=== PATIENT | female | born 1940 | race Caucasian/White ===

== ENCOUNTER 2017-01-26 18:40 | Emergency (ER) | payer MEDICARE, BC ==
[2017-01-26 19:05] VITALS: BMI 21.9
[2017-01-26 19:10] VITALS: TEMP 97.9
--- NOTE | 2017-01-26 19:42 | ED PDOC ---
Arrival/HPI <JamesMichaeltyler - Last Filed: 01/26/17 20:37> - History of Present Illness Time/Duration: Prior to Arrival Symptom Onset: Sudden Severity Level: Mild Activities at Onset: Significant <Jimbo Dunbar - Last Filed: 01/26/17 21:53> - General Chief Complaint: Trauma Time Seen by Provider: 01/26/17 19:13 - History of Present Illness Narrative History of Present Illness (Text): 01/26/17 19:38 76 very pleasant F with pertinent hx of Meniere's disease presents s/p strictly mechanical fall. Patient denies any dizziness, blurry vision, presyncopal symptoms, headache, or aura before the fall. Presently, patient complains of pain in her left frontal lobe as well as bilaterally on the lateral edges of her nasal bone. Patient further complains of a mild abrasion on her LLE near her knee. Patient also states that she has blurry vision in her left eye, but this started after the fall. Patient denies any dizziness, any loss of vision, any loss of sensation, any loss of motor function, and any change in mentation. Patient further denies any f/ch/cp/sob/n/v/d. Patient has no further complaints. (Michael Ramirez) Past Medical History - Provider Review Nursing Documentation Reviewed: Yes - Infectious Disease Hx of Infectious Diseases: None - Tetanus Immunization Tetanus Immunization: Unknown - Cardiac Hx Hypotension: Yes - Pulmonary Hx Respiratory Disorders: No - Neurological Hx Neurological Disorder: Yes (MENIERE'S DSE) Hx Dizziness: Yes - HEENT Hx HEENT Disorder: Yes (WEARS RX GLASSES) - Renal Hx Renal Disorder: No - Endocrine/Metabolic Hx Hypothyroidism: Yes - Hematological/Oncological Hx Blood Disorders: No - Integumentary Hx Dermatological Disorder: No - Musculoskeletal/Rheumatological Hx Musculoskeletal Disorders: Yes (BUNIONECTOMY X 2) Hx Arthritis: Yes Hx Falls: Yes Hx Herniated Disk: Yes Hx Osteoporosis: Yes - Gastrointestinal Hx Gastrointestinal Disorders: Yes (DIVERTICULOSIS) - Genitourinary/Gynecological Hx Genitourinary Disorders: Yes (CEASEREAN SECTION X 3) - Psychiatric Hx Depression: No Hx Emotional Abuse: No Hx Physical Abuse: No Hx Substance Use: No - Surgical History Other/Comment: total thyroidectomy 1984, 3 c-sections - Anesthesia Hx Anesthesia: Yes Hx Anesthesia Reactions: No Hx Malignant Hyperthermia: No - Suicidal Assessment Feels Threatened In Home Enviroment: No <Michael Ramirez - Last Filed: 01/26/17 20:37> Family/Social History - Physician Review Nursing Documentation Reviewed: Yes Family/Social History: Unknown Family HX Smoking Status: Never Smoked Hx Alcohol Use: No Hx Substance Use: No Hx Substance Use Treatment: No <Michael Ramirez - Last Filed: 01/26/17 20:37> Allergies/Home Meds <Michael Ramirez - Last Filed: 01/26/17 20:37> <Jimbo Dunbar - Last Filed: 01/26/17 21:53> Allergies/Adverse Reactions: Allergies latex Allergy (Verified 01/26/17 19:04) SWELLING Home Medications: Home Meds Medication Instructions Recorded Confirmed Levothyroxine [Levothyroxine] 75 mcg PO DAILY 04/07/13 01/26/17 Atorvastatin [Lipitor] 1 tab PO DAILY 01/26/17 01/26/17 Review of Systems - Physician Review All systems were reviewed & negative as marked: Yes - Review of Systems Constitutional: Normal. absent: Fatigue, Weight Change, Fevers Eyes: Vision Changes (left sided visual blurriness after the fall). absent: Photophobia, Eye Pain ENT: Normal. absent: Hearing Changes, Tinnitus, Rhinorrhea, Epistaxis Respiratory: Normal. absent: SOB, Cough, Sputum Cardiovascular: Normal. absent: Chest Pain, Palpitations, Edema, Calf Pain Gastrointestinal: Normal. absent: Constipation, Diarrhea, Nausea, Vomiting Genitourinary Female: Normal. absent: Dysuria, Frequency, Hematuria Musculoskeletal: Normal. absent: Arthralgias, Back Pain, Neck Pain Skin: Normal. absent: Rash, Pruritis, Skin Lesions Neurological: Headache (at site of injury from fall, started only after the fall ). absent: Dizziness, Focal Weakness, Gait Changes, Speech Changes, Facial Droop, Disequilibrium, Seizure Endocrine: Normal. absent: Diaphoresis, Polyuria, Polydipsia Hemo/Lymphatic: Normal, Easy Bruising. absent: Adenopathy, Easy Bleeding Psychiatric: Normal. absent: Anxiety, Depression, Suicidal Ideation <Michael Ramirez - Last Filed: 01/26/17 20:37> Physical Exam Vital Signs Reviewed: Yes Temperature: Afebrile Blood Pressure: Hypertensive (very mildly elevated SBP) Pulse: Regular Respiratory Rate: Normal Appearance: Positive for: Well-Appearing, Non-Toxic, Comfortable Pain Distress: None Mental Status: Positive for: Alert and Oriented X 3. No: Confused, Agitated, Lethargic, Comatose - Systems Exam Head: Present: Normocephalic, Tenderness, Contusion (Left frontal lobe has a mild contusion, patient states that is where she fell and hit her head), Swelling, Abrasion (Patient has an abrasion on bilateral nasal bones on lateral edges). No: Atraumatic, Ecchymosis, Laceration Pupils: Present: PERRL. No: Sluggish, Non-Reactive, Pinpoint Extroacular Muscles: Present: EOMI. No: Gaze Palsy, Entrapment Conjunctiva: Present: Normal. No: Injected, Icteric Ears: Present: Normal, NORMAL TM, Erythema, Normal Canal. No: TM Bulging Mouth: Present: Moist Mucous Membranes. No: Dry, Drooling Pharnyx: Present: Normal. No: ERYTHEMA, EXUDATE, TONSILS ENLARGED Nose (External): Present: Abrasion. No: Atraumatic, Contusion, Laceration Nose (Internal): Present: Normal Inspection, No Active Bleeding. No: Moist, Engorged, Edematous, Boggy Neck: Present: Normal Range of Motion. No: Meningeal Signs, MIDLINE TENDERNESS , Paraspinal Tenderness Respiratory/Chest: Present: Clear to Auscultation, Good Air Exchange. No: Respiratory Distress, Accessory Muscle Use, Wheezes, Rales, Rhonchi Cardiovascular: Present: Regular Rate and Rhythm, Normal S1, S2. No: Murmurs, Irregular Rhythm Abdomen: Present: Normal Bowel Sounds. No: Distention, Peritoneal Signs, Rebound, Guarding Upper Extremity: Present: Normal Inspection, Normal ROM, NORMAL PULSES, Neurovascularly Intact, Capillary Refill < 2s. No: Cyanosis, Edema, Tenderness , Swelling, Erythema, Temperature Abnormalties, Deformity Lower Extremity: Present: NORMAL PULSES, Normal ROM, Tenderness (Pt has a mild abrasion on her LLE near the patella. Full ROM, no deficits in sensation or function), Neurovascularly Intact, Capillary Refill < 2 s. No: Edema, CALF TENDERNESS, Cyanosis, Kenya's Sign, Swelling, Erythema, Deformity, Temperature Abnormalties Neurological: Present: GCS=15, CN II-XII Intact, Speech Normal, Motor Func Grossly Intact, Normal Sensory Function, Normal Cerebellar Funct, Gait Normal, Memory Normal Skin: Present: Warm, Normal Color. No: Dry, Rashes Psychiatric: Present: Alert, Oriented x 3, Normal Insight, Normal Concentration , Normal Affect, Normal Mood. No: Anxious, Agitated, Depressed Mood, Suicidal Ideation, Homicidal Ideation <Michael Ramirez - Last Filed: 01/26/17 20:37> Medical Decision Making <Michael Ramirez - Last Filed: 01/26/17 20:37> - Lab Interpretations I have reviewed the lab results: Yes - RAD Interpretation [employer] Accessory Installer: Radiologist <Jimbo Dunbar - Last Filed: 01/26/17 21:53> ED Course and Treatment: Assessed: 01/26/17 19:40 Impression: 76 F w/ PMHx pertinent for Meniere's presents s/p strictly mechanical fall Plan: - CT Head w/o contrast - CT Maxillofacial w/o contrast - Pt does not need anything for pain at this time - Reassess Reassessed 01/26/17 20:37 - Pt asked for something for pain, given motrin 400 Reassessed 01/26/17 21:33 - Pt pain has improved - CT Head and CT Maxillofacial are negative for acute bleed and fracture, respectively - Pt stable for discharge, given ibuprofen 400 Rx (James,Michael Vásquez) 01/26/17 20:09 Pt. seen and evaluated with the medical center representative.Agree with HPI,clinical exam , assessment and treatment plan. Patient presents to the emergency department with trauma to head s/p mechanical fall. CT Head and CT Maxillofacial negative for any acute fracture or bleeding. Patient is stable for discharge. (Jimbo Dunbar) - RAD Interpretation Narrative RAD Interpretations (Text): CT Head Without Intravenous Contrast Dictated and Authenticated by: Alexis Briceno MD FINDINGS: Brain: Mild atrophy. No intracranial hemorrhage. No mass. Few scattered foci of decreased attenuation within periventricular/subcortical white matter. No edema. Ventricles: No hydrocephalus. Bones/joints: No calvarial fracture. Soft tissues: LEFT frontal soft tissue swelling. Mastoid air cells: No mastoid effusion. IMPRESSION: 1. No intracranial hemorrhage. 2. Nonspecific white matter changes. 3. See facial bone CT report for additional details. EXAM: CT Maxillofacial Without Intravenous Contrast Dictated and Authenticated by: Alexis Briceno MD FINDINGS: Bones/joints: Degenerative changes of cervical spine. No acute fracture. Soft tissues: LEFT frontal/periorbital soft tissue swelling. Orbits: Unremarkable as visualized. Sinuses: Unremarkable. No air-fluid levels. IMPRESSION: 1. No fracture. (Jimbo Dunbar) Radiology Orders: 01/26/17 19:31 HEAD W/O CONTRAST [CT] Stat MAXILLOFACIAL W/O CONTRAST [CT] Stat - Medication Orders Current Medication Orders: Discontinued Medications Ibuprofen (Motrin Tab) 400 mg PO STAT STA Stop: 01/26/17 20:21 Last Admin: 01/26/17 20:35 Dose: 400 mg - PA / CASEWORK SPECIALIST / Resident Statement / has reviewed & agrees with the documentation as recorded. ZAK has examined the patient and agrees with the treatment plan. <Jimbo Dunbar - Last Filed: 01/26/17 21:53> Disposition/Present on Arrival - Present on Arrival Any Indicators Present on Arrival: No History of DVT/PE: No History of Uncontrolled Diabetes: No Urinary Catheter: No History of Decub. Ulcer: No History Surgical Site Infection Following: None - Disposition Have Diagnosis and Disposition been Completed?: Yes Disposition Time: 21:25 Patient Plan: Discharge <Michael Ramirez - Last Filed: 01/26/17 20:37> <Jimbo Dunbar - Last Filed: 01/26/17 21:53> - Disposition Diagnosis: Closed head injury Disposition: HOME/ ROUTINE Patient Problems: Current Active Problems Problem Status Onset Closed head injury Acute Condition: GOOD Discharge Instructions (ExitCare): Head Injury (ED) Additional Instructions: Ms. Ladd, thank you for letting us take care of you today. Your providers were Dr. Dunbar and Dr. Ramirez. You were treated for a closed head injury. The emergency medical care you received today was directed at your acute symptoms. If you were prescribed any medication, please fill it and take as directed. It may take several days for your symptoms to resolve. Return to the Emergency Department if your symptoms worsen, do not improve, or if you have any other problems. Please contact your doctor or call one of the physicians/clinics you have been referred to that are listed on the Patient Visit Information form that is included in your discharge packet. Bring any paperwork you were given at discharge with you along with any medications you are taking to your follow up visit. Our treatment cannot replace ongoing medical care by a primary care provider (PCP) outside of the emergency department. Thank you for allowing the [facility] team to be part of your care today. Your CT Maxillofacial (facial bones) was negative for fracture Your CT Head was negative for any bleeding Prescriptions: Ibuprofen [Motrin] 400 mg PO BID #8 tab Referrals: Rkaesh Kinney MD [Primary Care Provider] - Follow up with primary Forms: [employer] ([place] Citizen)
--- NOTE | 2017-01-26 21:20 | CT ---
EXAM: CT Head Without Intravenous Contrast CLINICAL HISTORY: 76 years old, female; Injury or trauma; Fall; Initial encounter; Abrasion; Forehead; Additional info: S/P fall TECHNIQUE: Axial computed tomography images of the head/brain without intravenous contrast. All CT scans at this facility use one or more dose reduction techniques, viz.: automated exposure control; ma/kV adjustment per patient size (including targeted exams where dose is matched to indication; i.e. head); or iterative reconstruction technique. COMPARISON: No relevant prior studies available. FINDINGS: Brain: Mild atrophy. No intracranial hemorrhage. No mass. Few scattered foci of decreased attenuation within periventricular/subcortical white matter. No edema. Ventricles: No hydrocephalus. Bones/joints: No calvarial fracture. Soft tissues: LEFT frontal soft tissue swelling. Mastoid air cells: No mastoid effusion. IMPRESSION: 1. No intracranial hemorrhage. 2. Nonspecific white matter changes. 3. See facial bone CT report for additional details.
--- NOTE | 2017-01-26 21:22 | CT ---
EXAM: CT Maxillofacial Without Intravenous Contrast CLINICAL HISTORY: 76 years old, female; Injury or trauma; Fall; Initial encounter; Abrasion; Forehead; Additional info: S/P fall TECHNIQUE: Axial computed tomography images of the face without intravenous contrast. All CT scans at this facility use one or more dose reduction techniques, viz.: automated exposure control; ma/kV adjustment per patient size (including targeted exams where dose is matched to indication; i.e. head); or iterative reconstruction technique. Coronal and sagittal reformatted images were created and reviewed. COMPARISON: No relevant prior studies available. FINDINGS: Bones/joints: Degenerative changes of cervical spine. No acute fracture. Soft tissues: LEFT frontal/periorbital soft tissue swelling. Orbits: Unremarkable as visualized. Sinuses: Unremarkable. No air-fluid levels. IMPRESSION: 1. No fracture.
[2017-01-26 21:53] VITALS: BP 128/70; PULSE 70; RESP 17; O2SAT 100
== END 2017-01-26 21:52 | disposition home or self-care (01) ==
LOC: ED 18:40
DX: S09.90XA Unspecified injury of head, initial encounter (principal); W01.0XXA Fall on same level from slipping, tripping and stumbling without subsequent striking against object, initial encounter; Y93.K1 Activity, walking an animal; Y92.830 Public park as the place of occurrence of the external cause

== ENCOUNTER 2017-05-26 06:04 | Day surgery (SDC) | payer MEDICARE, BC ==
[2017-05-14 14:32] VITALS: BMI 22.2
[2017-05-26] MEDS ORDERED: Propofol 10 mg/ml Inj (20 ML) ONE (08:06)
[2017-05-26] MEDS ORDERED: ePHEDrine 50 mg/ml Inj ONE (08:24)
[2017-05-26] MEDS ORDERED: Lactated Ringer's 1,000 ML IV SCH (08:45)
[2017-05-26 09:21] VITALS: O2SAT 97
[2017-05-26 09:34] VITALS: RESP 15
[2017-05-26 10:06] VITALS: BP 108/71; PULSE 14; TEMP 97
== END 2017-05-26 11:22 | disposition home or self-care (01) ==
LOC: ENDO 06:04
PROVIDERS: ATTEND Internal Medicine
DX: D12.0 Benign neoplasm of cecum (principal); D12.3 Benign neoplasm of transverse colon; K59.00 Constipation, unspecified; K57.30 Diverticulosis of large intestine without perforation or abscess without bleeding; K64.8 Other hemorrhoids; K31.7 Polyp of stomach and duodenum; K20.9 Esophagitis, unspecified; K29.70 Gastritis, unspecified, without bleeding; K29.80 Duodenitis without bleeding
CPT/HCPCS: 43239; 45380; 88305; 88342; J2001; J2704; J3010; J7040; J7120

== ENCOUNTER 2017-06-15 10:14 | Day surgery (SDC) | payer MEDICARE, BC ==
[2017-05-14 14:32] VITALS: BMI 22.2
[2017-06-15 11:22] LABS: INR 1.01 (0.93-1.08); PARTIAL THROMBOPLASTIN TIME 34.6 Seconds (25.1-36.5); PROTHROMBIN TIME 11.6 SECONDS (9.4-12.5)
[2017-06-15] MEDS ORDERED: Midazolam 2 MG/2 ML VIAL ONE (11:59)
[2017-06-15] MEDS ORDERED: Oxycodone/Acetaminophen 5/325 mg Tab PO PRN (12:37)
[2017-06-15] MEDS ORDERED: Sodium Chloride 0.45% 1,000 ML IV SCH (12:45)
[2017-06-15 14:54] VITALS: TEMP 98.3; O2SAT 97
--- NOTE | 2017-06-15 15:49 | RAD ---
HISTORY: lt lung bx COMPARISON: CT biopsy same day FINDINGS: LUNGS: Bilateral lung masses. No pneumothorax PLEURA: No significant pleural effusion identified, no pneumothorax apparent. CARDIOVASCULAR: Normal. OSSEOUS STRUCTURES: No significant abnormalities. VISUALIZED UPPER ABDOMEN: Normal. OTHER FINDINGS: None. IMPRESSION: No evidence of post biopsy pneumothorax
[2017-06-15 16:15] VITALS: BP 110/66; PULSE 67; RESP 20
--- NOTE | 2017-06-15 19:33 | CT ---
PROCEDURE: CT guided left upper lobe lung biopsy. HISTORY: Multiple large lung masses. Left pleural effusion. Evaluate for malignancy. PHYSICIAN(S): Juan Flores MD. TECHNIQUE: The relative risks and indications of the procedure were explained to the patient and consent obtained. The patient was placed right decubitus position on the CT scanner and preliminary images through the upper lungs obtained. Conscious sedation and monitoring were provided throughout the procedure by a nurse. There is a 3.5 cm noncalcified mass in the left upper lobe posteriorly. Additional bilateral opacities are present.. A left posterior approach was selected and the area prepped and draped in the usual sterile fashion. 1% Xylocaine was used to anesthetize the skin and soft tissues. A 19 gauge guiding needle was advanced into the re- 0.5 cm left upper lobe lung mass. Its position was confirmed with CT. Using coaxial technique, multiple core biopsies were obtained. The postprocedure images show no evidence of large pneumothorax or significant hemorrhage.. IMPRESSION: 1. CT-guided left upper lobe lung biopsy as described above.
--- NOTE | 2017-06-15 19:35 | US ---
PROCEDURE: Ultrasound guided left thoracentesis. CLINICAL HISTORY: Multiple lung masses. Moderate to large left pleural effusion. Needs thoracentesis. Shortness of breath PHYSICIAN(S): Juan Flores MD. TECHNIQUE: The relative risks and indications of the procedure were explained to the patient and consent obtained. The patient was placed in a sitting position on the stretcher and sonography of the right chest performed. This revealed a moderate sized leftpleural effusion. A left posterolateral intercostal approach was selected and the area prepped and draped usual sterile fashion. 1% Xylocaine was used to anesthetize the skin and soft tissues. A 7 [place] thoracentesis catheter was trocared into the left pleural cavity and 850of serosanguineous fluid aspirated. A cytology specimen was sent. IMPRESSION: 1. Ultrasound guided left thoracentesis. 850cc of serosanguineousfluid were aspirated.
== END 2017-06-15 16:15 | disposition home or self-care (01) ==
LOC: SDS 10:14
PROVIDERS: ATTEND Radiology Vascular & Interventional Radiology
DX: C34.90 Malignant neoplasm of unspecified part of unspecified bronchus or lung (principal); J90 Pleural effusion, not elsewhere classified
CPT/HCPCS: 32405; 32555; 36415; 71045; 77012; 85610; 85730; 88108; 88305; J2250; J2405; J3010; J7030